=== PATIENT | female | born 1985 | race Caucasian/White ===

== ENCOUNTER 2018-12-11 16:52 | Inpatient (IN) | payer OTHER, SELFPAY ==
[2018-12-11] MEDS ORDERED: Ondansetron PF 4 MG/2 ML Vial IVP PRN (17:23)
[2018-12-11] MEDS ORDERED: Promethazine HCl 25 MG/ML VIAL IM PRN (17:23)
[2018-12-11] MEDS ORDERED: Lactated Ringer's 1,000 ML IV SCH (17:30)
--- NOTE | 2018-12-11 17:32 | PDOC.FPROB ---
FMR OB H&P: Medications - Current Home Medications: Medication Instructions Recorded Confirmed Type Vitamin 1 tab PO DAILY 02/09/17 02/09/17 History Zantac 150 mg PO BID 02/09/17 02/09/17 History valACYclovir [ValTRex] 500 mg PO DAILY 02/09/17 02/09/17 History Ibuprofen [Motrin] 800 mg PO Q8HR #30 tab 02/10/17 Rx Allergies/Adverse Reactions: Allergies Allergy/AdvReac Type Severity Reaction Status Date / Time No Known Allergies Allergy Unverified 02/09/17 06:14 FMR OB H&P: A/P Discussion: Date/Time: 12/11/18 5627 This H&P was discussed with [] and [] who agree with the above documentation and plan.
[2018-12-11 19:15] VITALS: BMI 30.2
--- NOTE | 2018-12-11 19:54 | PDOC.FPROB ---
FMR OB H&P: HPI - History of Present Illness Chief Complaint: cocaine withdrawal Indentification: 33 yo female at 35.3 wks by 35.3 wk sono History of Present Illness: The patient is a 33YO @ an estimated 35.3 weeks gestation by U/S done today who was sent over from clinic to L&D for close monitoring while going through withdrawals from chronic cocaine use. Per the patient she has a h/o chronic cocaine with history of use in her second reports starting in March of last year. Reports her last use was Tuesday (12/09/18). Endorses anxiety and jitteriness but denies any vaginal bleeding, pressure, contractions or discharge. She also denies chest pain, dizziness, SOB, or palpitations. Denies any previous care for this . Did have an ultrasound performed at [facility]. Results/records unavailable. Denies any other ER evaluations or medical care. Primary Care Physician: JOURDAN Thomson FMR OB H&P: Current - Care : 3 Para: 2001 Gestational age: 35.3 wks Due date: 01/09/2019 Dating Criteria: 35.3 wk sono Total weight gain: unknown Course/Complications: No care, chronic cocaine use (nasal use), tobacco use (2 ho/day), hx of HSV, GERD - OB Labs Blood type: AB RH: positive Antibody Screen: negative RPR: negative Pap Smear: NILM 2016 1 hour gtt: not done H&H: 10.8/31.7 Platelets: 290 Additional labs: 12/11/18: Gardnerella positive 12/11/18: GBS, Chlamydia, gonnorrhea pending. 12/11/18: Amni sure negative. - First Trimester Ultrasound First trimester: Not available at present. - Anatomy Survey Anatomy survey: Limited today. Incomplete cardiac and neuro anatomy. Cephalic. Anterior placenta. ALEXANDRA 11.2 cm BPP /8 S/D ratio = 2.44 EFW = 2696 g FMR OB H&P: History - Past Medical History PMH: Substance abuse. Tobacco abuse. Denies all others. - OB History OB History: 01/22/13 38 wks male 7 lbs 11 oz maternal GM has custody 02/09/17 40 wks female 8 lbs 1 oz maternal GM has custody - [employer] History [employer] History: menarche at 16 years old, 28 day interval, LMP March 2018 Hx of Chlamydia and gonorrhea 2007 HSV - denies genital lesions recently. Used ppx with prior pregnancies. NILM 2017 - Surgical History Sx History: Denies - Social History Social History: Tobacco use 2 ho/day Denies alcohol use Cocaine use daily, nasal use Denies hx of travel or abuse - Family History Family History: Mother: HTN Father: DM No congenital abnormalities known to patient. FMR OB H&P: Medications - Current Home Medications: Medication Instructions Recorded Confirmed Type Vitamin 1 tab PO DAILY 02/09/17 02/09/17 History Zantac 150 mg PO BID 02/09/17 02/09/17 History valACYclovir [ValTRex] 500 mg PO DAILY 02/09/17 02/09/17 History Ibuprofen [Motrin] 800 mg PO Q8HR #30 tab 02/10/17 Rx Allergies/Adverse Reactions: Allergies Allergy/AdvReac Type Severity Reaction Status Date / Time No Known Allergies Allergy Verified 12/11/18 19:22 FMR OB H&P: ROS - Review of Systems General: reports: weight/appetite/sleep changes, night sweats, fatigue. denies : fever/chills Eyes: denies: eye pain, vision changes, double vision, scotomas, floaters ENT: denies: nasal congestion, rhinorrhea, sinus pain/pressure, ear pain, toothache, sore throat Cardiovascular: reports: palpitation. denies: chest pain, edema, orthopnea Respiratory: denies: cough, congestion, shortness of breath Gastrointestinal: reports: indigestion. denies: abdominal pain, bloating, cramping, nausea, vomiting, diarrhea, constipation Genitourinary (Female): denies: dysuria, hematuria, vaginal discharge, vaginal pain, vaginal bleeding, vaginal mass/sore, contractions, vaginal pressure Musculoskeletal: denies: pain, stiffness, tenderness, redness Neurologic: denies: numbness, weakness, loss of counsciousness, headache Integumentary: denies: itching, rash, lesions Endocrine: denies: cold intolerance, heat intolerance, polydipsia, polyuria, polyphagia Psychological: reports: anxiety, other (No sucidal ideation). denies: depression, paranoia, hallucinations FMR OB H&P: Vital Signs - Maternal Vital signs: 129/92 83 24 100% on RA - Heart Tones Baseline: 145 Variability: moderate Acceleration: present Deceleration: absent Category: category 1 [place] contractions every: occasional contraction FMR OB H&P: Physical Exam - Physical Exam General: awake, alert and oriented Deviation from normal: Agitated and restless HEENT: normocephalic and atraumatic, PERRLA, EOMI, MMM, conjunctiva clear, grossly normal hearing, normal nasal mucosa Neck: supple, FROM, trachea midline, no LAD Chest: non-tender to palpation, no lesions Heart: RRR, normal S1/S2, no murmurs/rubs/gallops, pulses present, no edema General: no respiratory distress, good air movement, no wheezing, no retractions Abdomen: soft, gravid, fundus(cm) (36 cm), non-tender, bowel sound present, no masses, no hernias Musculoskeletal: normal gait and station, pulses present, FROM in all four extremities Neurological: cranial nerves II through XII intact, sensation to pain,touch and proprioception grossly normal, no focal deficit Skin: no rash, good tugor Lymphatic: no unusual bruising or bleeding Psychiatric: intact recent and remote memory Deviation from normal: restless, agitated, poor judgement - Pelvic Exam Vulva: normal hair distribution, no masses, no lesions Deviation from normal: white, thin discharge. Clear discharge after removal of speculum Cervix: no masses SVE: deferred Membranes: Intact -- Amnisure negative Presentation: Cephalic Estimated Weight: 6 lbs FMR OB H&P: Results - Labs Lab results: Laboratory Tests 12/11/18 12/11/18 12/11/18 19:47 19:47 19:47 WBC 10.7 RBC 3.55 L Hgb 10.8 L Hct 31.7 L MCV 89.3 MCH 30.5 MCHC 34.2 RDW 12.2 Plt Count 290 MPV 6.6 L Sodium 137 Potassium 3.6 Chloride 108 H Carbon Dioxide 23 Anion Gap 10 BUN 6 L Creatinine 0.66 Estimated GFR (MDRD) Greater than 90 Glucose 98 Calcium 8.9 Total Bilirubin 0.2 AST 21 ALT 19 Alkaline Phosphatase 172 H Troponin I B-Natriuretic Peptide Serum Total Protein 6.0 Albumin 3.4 L Globulin 2.6 Albumin/Globulin Ratio 1.3 TSH 3rd Generation Amnio Swab Test Salicylates Less than 8.0 L Acetaminophen Less than 6.0 L Plasma Alcohol Less than 10 Syphilis IgG/IgM Ab Nonreactive 12/11/18 12/11/18 12/11/18 19:47 19:47 19:47 WBC RBC Hgb Hct MCV MCH MCHC RDW Plt Count MPV Sodium Potassium Chloride Carbon Dioxide Anion Gap BUN Creatinine Estimated GFR (MDRD) Glucose Calcium Total Bilirubin AST ALT Alkaline Phosphatase Troponin I Less than 0.010 B-Natriuretic Peptide 28.9 Serum Total Protein Albumin Globulin Albumin/Globulin Ratio TSH 3rd Generation 1.4038 Amnio Swab Test Salicylates Acetaminophen Plasma Alcohol Syphilis IgG/IgM Ab 12/11/18 20:20 WBC RBC Hgb Hct MCV MCH MCHC RDW Plt Count MPV Sodium Potassium Chloride Carbon Dioxide Anion Gap BUN Creatinine Estimated GFR (MDRD) Glucose Calcium Total Bilirubin AST ALT Alkaline Phosphatase Troponin I B-Natriuretic Peptide Serum Total Protein Albumin Globulin Albumin/Globulin Ratio TSH 3rd Generation Amnio Swab Test No Membranes Rupture Salicylates Acetaminophen Plasma Alcohol Syphilis IgG/IgM Ab - Imaging Imaging: See printed reports. FMR OB H&P: A/P - Problem List (1) Current Visit: Yes Status: Acute Qualifiers: Weeks of gestation: 35 weeks Qualified Code(s): Z3A.35 - 35 weeks gestation of (2) Cocaine abuse affecting in third trimester Current Visit: Yes Status: Acute Code(s): O99.323 - DRUG USE COMPLICATING , THIRD TRIMESTER; F14.10 - COCAINE ABUSE, UNCOMPLICATED (3) Tobacco use affecting in third trimester, antepartum Current Visit: Yes Status: Acute Code(s): O99.333 - SMOKING (TOBACCO) COMPLICATING , THIRD TRIMESTER (4) Anemia affecting in third trimester Current Visit: Yes Status: Acute Code(s): O99.013 - ANEMIA COMPLICATING , THIRD TRIMESTER (5) Poor patient attendance of care Current Visit: Yes Status: Acute Code(s): O09.30 - SUPRVSN OF PREG W INSUFFICIENT ANTENAT CARE, UNSP TRIMESTER Disposition: 33 yo female at 35.3 wks by 35.3 wk sono here for substance abuse with cocaine. 1. No care. Labs pending. GBS pending. Limited anatomy performed. NST reactive. BPP 05/10. EFW 2696 g. 2. Substance abuse Patient continues to use cocaine and tobacco. Currently last use 12/09/18. Perfers nasal use. Public health labs pending. On EKG noted to have occasional PACs. Needs cardiac monitoring. Trop I negative. BNP WNL. No evidence of LVH. Will need ECHO to further evaluated due to chronic use and risk for cardiomyopathy. Tele refusing to take patient. Laborist unable to assist in care. [facility] able to accept. Will need psych care once medically cleared. Will continue to trend trop level while here. Needs MFM level II. 3. Tobacco use Discussed risk. Patient admitted to 2 ho/day. Nicotine patch added today due to cravings. Continue to wean due to risk for fetus. 4. hx of HSV Started on acyclovir. Kamran Sanchez PGY1 Addendum - Attending - Attending Attestation Date/Time: 12/11/18 7092 I personally evaluated the patient and discussed the management with Dr. Sanchez I agree with the History, Examination, Assessment and Plan documented above with any addition or exceptions noted below. 33 yo female at 35.3 wks by 35.3 wk sono admitted for cardiac monitoring due to substance abuse toxication/withdrawal Patient without any care. Consider in 1T. Ultrasound performed at that time. Patient unsure of LMP or due date. Chronic nasal cocaine use along with tobacco use. Last use 12/09/18. Currently complaining of agitation, tremors, restlessness, nausea. +FM. Denies LOF, VB, ctx, abdominal pain, discharge. Notes a labial cyst but not seen on exam today. VS reviewed. Labs reviewed. Imaging reviewed. FHT 145/mod/pos acels/no decels Occasional contractions EKG HR 76 with occasional PACs, otherwise NSR. Nonspecific T wave changes and repolarization. Due to cocaine and cocaine metabolites will need acute cardiac monitoring especially since PACs noted. Tele not accepting patient. Laborist unable to assist with care. Will need MFM consult. [facility] accepted to help with management. All labs and swabs performed today. Most still pending. Марина
--- NOTE | 2018-12-11 19:58 | ULT ---
BIOPHYSICAL PROFILE: History: non stress test FINDINGS: biophysical profile score is as follows: tone: 2 breathin movement: 2 Amniotic fluid: 2 IMPRESSION: 1. biophysical profile 8 out of 8. 2. Please refer to the OB ultrasound for additional findings.` POS: [facility]
[2018-12-11 20:24] LABS: Hemoglobin 10.8 g/dL (12.0-16.0); Mean Corpuscular HGB CONC 34.2 g/dL (32.0-36.0); Mean Corpuscular Hemoglobin 30.5 pg (27.0-31.0); Mean Corpuscular Volume 89.3 fL (78.0-98.0); Mean Platelet Volume 6.6 fL (7.4-10.4); Platelet Count 290 thou/uL (130-400); RBC Distribution Width 12.2 % (11.5-14.5); Red Blood Cell (RBC) Count 3.55 mill/uL (4.20-5.40); White Blood Cell (WBC) Count 10.7 thou/uL (4.8-10.8)
[2018-12-11 20:45] LABS: Amnisure Test No Membranes Rupture (No Rupture)
[2018-12-11 20:46] LABS: Amnisure Internal Control QC ACCEPTABLE (ACCEPTABLE)
[2018-12-11 20:48] LABS: ALT (SGPT) 19 U/L (8-55); AST (SGOT) 21 U/L (5-34); Acetaminophen Less than 6.0 mcg/mL (10.0-30.0); Albumin 3.4 g/dL (3.5-5.0); Alcohol Less than 10 mg/dL (Less than 10); Alkaline Phosphatase 172 U/L (40-150); Anion Gap 10 mmol/L (10-20); BUN (Urea Nitrogen) 6 mg/dL (7.0-18.7); Bilirubin, Total 0.2 mg/dL (0.2-1.2); Calc. Creatinine Clearance 145 mL/min (70-130); Calcium 8.9 mg/dL (7.8-10.44); Carbon Dioxide 23 mmol/L (22-29); Chloride 108 mmol/L (98-107); Estimated GFR-MDRD Greater than 90; Globulin 2.6 g/dL (2.4-3.5); Glucose 98 mg/dL (70-105); Potassium 3.6 mmol/L (3.5-5.1); Salicylate Less than 8.0 mg/dL (15.0-30.0); Sodium 137 mmol/L (136-145)
[2018-12-11 20:51] LABS: Troponin I Less than 0.010 ng/mL (< 0.028)
[2018-12-11] MEDS ORDERED: Acyclovir 400 mg Tablet PO SCH (21:00)
--- NOTE | 2018-12-11 21:02 | ULT ---
OB ULTRASOUND: History: Evaluation of anatomy and evaluation for dates. FINDINGS: Real-time imaging of the abdomen was performed and shows a single viable intrauterine which is a vertex presentation. The placenta is anterior in location without evidence of previa. The amnio tic fluid index is 11.2, visually the fluid appears borderline low. measurements: BPD 8.8 cm 35 weeks 5 days HC 32.2 cm 36 weeks 3 days AC 32.5 cm 36 weeks 3 days FL 6.4 cm 33 weeks 1 day anatomy assessment is somewhat limited due to size. head appears normal. Position of head made it difficult to evaluate cerebellum and even the cerebral hemispheres. Four chamber heart was i dentified. Stomach, kidneys, bladder and spine appear unremarkable. Cord insertion was not definitely seen. Three vessel cord was identified. IMPRESSION: 1. Single viable intrauterine in cephalic presentation. Overall measurements correspond to a gestational age of 35 weeks 3 days with estimated date of delivery of 01-12-19. 2. Placenta which is anterior in location without evidence of previa. 3. Estimated weight 2700 +/- 400 grams. POS: [facility]
[2018-12-11 21:06] LABS: Syphilis Antibody Nonreactive (Nonreactive); Syphilis Antibody Index 0.15 S/CO (<1.00 Non-Reactive)
[2018-12-11] MEDS ORDERED: hydrOXYzine 25 MG TAB PO PRN (21:16)
[2018-12-11] MEDS ORDERED: Zolpidem Tartrate 5 MG TAB PO PRN (21:18)
[2018-12-11] MEDS ORDERED: Nicotine 21 MG PATCH TD SCH (22:00)
[2018-12-11 22:37] LABS: Hemoglobin A1c 4.3 % (4.0-6.0)
[2018-12-11 22:41] LABS: Bilirubin Negative (Negative); Blood, Urine Negative (Negative); Clarity CLOUDY (Clear); Glucose, Urine (Dipstick) Negative (Negative); Leukocyte Small (Negative); Nitrite Negative (Negative); Protein, Urine (Dipstick) Negative (Neg-Trace); Specific Gravity, Urine 1.013 (1.002-1.036); pH, Urine 7.5 (5.0-9.0)
[2018-12-11 22:50] LABS: Amphetamine Not Detected (NotDetected); Bacteria/HPF None Seen HPF (None Seen); Barbiturates Screen Not Detected (NotDetected); Benzodiazepine Screen Not Detected (NotDetected); Cocaine Metabolite Screen Detected (NotDetected); Hyaline Casts/LPF 0-3 HYALINE CAST LPF (0-3 Hyaline); Medtox Control Line Valid? VALID (VALID); Medtox Reader # READER 1; Methadone Not Detected (NotDetected); Methamphetamine Not Detected (NotDetected); Opiate Screen Not Detected (NotDetected); Oxycodone Screen Not Detected (NotDetected); Pathc Cast-AUWi Flag 0.13 (0-2.49); Phencyclidine (PCP) Not Detected (NotDetected); RBC/HPF 0-3 HPF (0-3); Squamous Epithelial 0-3 HPF (0-3); THC/Cannabinoid Screen Not Detected (NotDetected); Tricyclic Screen Not Detected (NotDetected); WBC/HPF 0-3 HPF (0-3)
--- NOTE | 2018-12-11 22:55 | ULT ---
SONOGRAPHIC EVALUATION OF THE UMBILICAL CORD WITH UMBILICAL DOPPLER EVALUATION INCLUDING SPECTRAL DAVID LYSIS AND COLOR FLOW EVALUATION: Date: 12-11-18 FINDINGS: There is a single intrauterine gestation in cephalic presentation. Umbilical artery at the level of the placenta: Peak systolic velocity 83.8 cm/sec. End diastolic velocity 38.4 cm/sec.. Pulsatility index 0.8. Resistive index 0.54. Systolic/diastolic ratio 2.18. Mid umbilical artery: Peak systolic velocity 65 cm/sec. End diastolic velocity 26.6 cm/sec. Pulsatility index: 1.01 Resistive index: 0.59 Systolic to diastolic ratio: 2.44 Umbilical artery insertion: Peak systolic velocity 83.8 cm/sec. End diastolic velocity 32.1 cm/sec. Pulsatility index: 1.06 Resistive index: 0.62 Systolic to diastolic ratio 2.61 IMPRESSION: 1. Umbilical artery dopplers as described above. POS: [facility]
[2018-12-11 23:38] LABS: Hep C IgG Ab Non-Reactive (NonReactive); Hep C Index 0.06 S/CO (0-0.79)
[2018-12-11 23:39] LABS: HIV (1/2) Antibody/Antigen Non-Reactive (NonReactive); Hep B Surf Ag Non-Reactive S/CO (NonReactive)
[2018-12-11 23:43] LABS: Troponin I Less than 0.010 ng/mL (< 0.028)
[2018-12-12] MEDS ORDERED: Prenatal Vitamin 1 TAB PO SCH (09:00)
[2018-12-12] MEDS ORDERED: Nicotine 21 MG PATCH TD SCH (09:00)
[2018-12-12 23:41] LABS: Chlamydia by PCR DETECTED (NotDetected); GC by PCR Not Detected (NotDetected)
== END 2018-12-12 00:36 | disposition short-term general hospital (02) | DRG 833 ==
LOC: L&D 16:52
PROVIDERS: ADMIT Family Medicine; ATTEND Family Medicine
DX: O99.323 Drug use complicating pregnancy, third trimester (principal); F14.10 Cocaine abuse, uncomplicated; O99.333 Smoking (tobacco) complicating pregnancy, third trimester; O99.013 Anemia complicating pregnancy, third trimester; D64.9 Anemia, unspecified; O09.33 Supervision of pregnancy with insufficient antenatal care, third trimester; F17.210 Nicotine dependence, cigarettes, uncomplicated; Z3A.35 35 weeks gestation of pregnancy
CPT/HCPCS: 36415; 76805; 76815; 76819; 80053; 80306; 80307; 81001; 83036; 83880; 84112; 84443; 84484; 85027; 86480; 86762; 86780; 86803; 86850; 86900; 86901; 87081; 87086; 87340; 87389; 87480; 87491; 87510; 87591; 87660; 93005; 93010; 99285

== ENCOUNTER 2019-01-02 05:08 | Inpatient (IN) | payer MEDICAID, OTHER ==
[2019-01-02] MEDS ORDERED: Acetaminophen 500 MG TAB PO PRN (05:28)
[2019-01-02] MEDS ORDERED: Docusate 100 MG CAP PO PRN (05:28)
[2019-01-02] MEDS ORDERED: Promethazine HCl 25 MG/ML VIAL IM PRN ×2 (05:28→09:00)
[2019-01-02] MEDS ORDERED: Ondansetron PF 4 MG/2 ML Vial IVP PRN ×3 (05:28→17:55)
[2019-01-02] MEDS ORDERED: Lidocaine 1% (PF) 30 ML VIAL SC PRN (05:28)
[2019-01-02 06:03] VITALS: BMI 32.1
[2019-01-02 06:33] LABS: Hemoglobin 11.8 g/dL (12.0-16.0); Mean Corpuscular HGB CONC 34.6 g/dL (32.0-36.0); Mean Corpuscular Hemoglobin 30.4 pg (27.0-31.0); Mean Corpuscular Volume 87.9 fL (78.0-98.0); Mean Platelet Volume 6.8 fL (7.4-10.4); Platelet Count 297 thou/uL (130-400); RBC Distribution Width 12.1 % (11.5-14.5); Red Blood Cell (RBC) Count 3.88 mill/uL (4.20-5.40)
--- NOTE | 2019-01-02 06:36 | PDOC.FPROB ---
FMR OB H&P: HPI - History of Present Illness Chief Complaint: induction of labor Indentification: History of Present Illness: 33yo at 40.1w EGA by LMP and 9.3w US with PMH of cocaine tobacco and etoh use during presents for induction of labor. Pt has no complaints or concerns at this time. She denies vaginal bleeding/LOF. Reports mild infrequent contractions. Of note pt has had HSV infection though she has been asymptomatic and on suppressive therapy. Primary Care Physician: Dr. Thomson FMR OB H&P: Current - Care : 3 Para: 2001 Gestational age: 40.1 Dating Criteria: LMP and 9.3w US - OB Labs Blood type: AB RH: positive HIV: negative RPR: negative HepBsAg: negative Rubella: immune Urine drug screen: positive (cocaine, no positives since 37w) Gonorrhea: negative Chlamydia: positive (s/p treatment) GBS: negative FMR OB H&P: History - Past Medical History PMH: Anxiety - Surgical History Sx History: none - Social History Social History: cocaine use, active smoker 1-2 packs per day, Denies etoh - Family History Family History: DM FMR OB H&P: Medications - Current Home Medications: Medication Instructions Recorded Confirmed Type Zantac 150 mg PO BID 02/09/17 01/02/19 History valACYclovir [ValTRex] 500 mg PO DAILY 02/09/17 01/02/19 History hydrOXYzine HCl [Hydroxyzine HCl] 1 tablet PO PRN PRN 01/02/19 01/02/19 History Allergies/Adverse Reactions: Allergies Allergy/AdvReac Type Severity Reaction Status Date / Time No Known Allergies Allergy Verified 12/11/18 19:22 FMR OB H&P: ROS - Review of Systems General: denies: fever/chills, fatigue Eyes: denies: eye pain, vision changes ENT: denies: nasal congestion, rhinorrhea Cardiovascular: denies: chest pain, palpitation Respiratory: denies: cough, congestion Gastrointestinal: denies: abdominal pain, indigestion Genitourinary (Female): denies: incontinence, dysuria Musculoskeletal: denies: stiffness, tenderness Neurologic: denies: syncope, seizures Integumentary: denies: rash, lesions Endocrine: denies: cold intolerance, heat intolerance Hematologic/Lymphatic: denies: prolonged or excessive bleeding Psychological: reports: anxiety. denies: depression FMR OB H&P: Vital Signs - Maternal Vital signs: Vital Signs - First Documented Temp Pulse Resp BP Pulse Ox 98.0 F 100 16 127/92 H 97 01/02/19 05:21 01/02/19 05:21 01/02/19 05:21 01/02/19 05:21 01/02/19 05:21 FMR OB H&P: Physical Exam - Physical Exam General: NAD, awake, alert and oriented HEENT: normocephalic and atraumatic, EOMI, grossly normal vision, grossly normal hearing Neck: supple, trachea midline Chest: non-tender to palpation Breast: symmetric Heart: RRR, normal S1/S2 General: CTAB, no respiratory distress Abdomen: soft, gravid Musculoskeletal: normal gait and station, pulses present Neurological: no tremor, no focal deficit Skin: no rash, capillary refill <2 seconds Lymphatic: no unusual bruising or bleeding, no purpura Psychiatric: intact recent and remote memory, good judgement and insight - Pelvic Exam SVE: 350/-2 FMR OB H&P: Results - Labs Lab results: Laboratory Results - last 24 hr 01/02/19 06:24 WBC 17.0 H RBC 3.88 L Hgb 11.8 L Hct 34.1 L MCV 87.9 MCH 30.4 MCHC 34.6 RDW 12.1 Plt Count 297 MPV 6.8 L FMR OB H&P: A/P - Problem List (1) Vaginal delivery Current Visit: No Status: Acute Code(s): O80 - ENCOUNTER FOR FULL-TERM UNCOMPLICATED DELIVERY (2) Cocaine abuse affecting in third trimester Current Visit: No Status: Acute Code(s): O99.323 - DRUG USE COMPLICATING , THIRD TRIMESTER; F14.10 - COCAINE ABUSE, UNCOMPLICATED (3) Poor patient attendance of care Current Visit: No Status: Acute Code(s): O09.30 - SUPRVSN OF PREG W INSUFFICIENT ANTENAT CARE, UNSP TRIMESTER (4) Current Visit: No Status: Acute Qualifiers: Weeks of gestation: 35 weeks Qualified Code(s): Z3A.35 - 35 weeks gestation of (5) Tobacco use affecting in third trimester, antepartum Current Visit: No Status: Acute Code(s): O99.333 - SMOKING (TOBACCO) COMPLICATING , THIRD TRIMESTER Discussion: induction of tIUP A- Pt shows reassuring FHT with favorable cervix P- Will start pitocin -monitor FHT -recheck in 4 hrs -US to check position -standard antepartum care Cocaine use during third trimester A- Pt advised to quit. Last use reportedly at 37w EGA P- repeat UDS Tobacco use during - Advised to quit HSV A- no active lesions from chart review, pt on acyclovir P- will do spec exam to evaluate for lesions Hx of Chlamydia infection - pt is s/p treatment Addendum - Attending - Attending Attestation Date/Time: 01/02/19 0900 I personally evaluated the patient and discussed the management with Dr. Fernandez and Dr. Mcgee I agree with the History, Examination, Assessment and Plan documented above with any addition or exceptions noted below. 33 yo female at 40.1 wks by LMP/9.3 wk sono admitted for IOL Patient doing well. Denies contractions, VB, LOF, discharge. +FM. VS reviewed. Labs reviewed. NAD. RRR. No murmurs. Gravid. Nontender fundus. Vertex by bedside sono. EFW 8lbs SVE, no lesions FHT cat1 1. sIUP: IOB labs reviewed along with OB record. Will continue with elective IOL. PCP notified. 2. hx of HSV: No active lesions. No prodrome. Has been on ppx. Will continue until delivery. 3. Substance abuse history: UDS negative. Will collect on . Consult CM. 4. Tobacco use 5. Anxiety 6. Chlamydia positive: Treated. MICHELLE negative. 7. Incomplete PNC. Continue to monitor. Pitocin for induction. Patient with favorable cervix. Марина
[2019-01-02] MEDS ORDERED: hydrOXYzine 25 MG TAB PO PRN (06:48)
[2019-01-02] MEDS ORDERED: NS w/ Oxytocin 10 units 500 ML IV SCH (07:00)
[2019-01-02 07:12] LABS: HBSAg Index 0.32 S/CO (0-0.99); Hep B Surf Ag Non-Reactive S/CO (NonReactive); Syphilis Antibody Nonreactive (Nonreactive); Syphilis Antibody Index 0.11 S/CO (<1.00 Non-Reactive)
[2019-01-02] MEDS ORDERED: Fentanyl 4 mcg/Bup 0.1% Cadd 100 ML ONE ×2 (07:24→15:08)
[2019-01-02 07:41] LABS: Amphetamine Not Detected (NotDetected); Barbiturates Screen Not Detected (NotDetected); Benzodiazepine Screen Not Detected (NotDetected); Cocaine Metabolite Screen Not Detected (NotDetected); Medtox Control Line Valid? VALID (VALID); Medtox Reader # READER 1; Methadone Not Detected (NotDetected); Methamphetamine Not Detected (NotDetected); Opiate Screen Not Detected (NotDetected); Oxycodone Screen Not Detected (NotDetected); Phencyclidine (PCP) Not Detected (NotDetected); THC/Cannabinoid Screen Not Detected (NotDetected); Tricyclic Screen Not Detected (NotDetected)
[2019-01-02] MEDS ORDERED: Naloxone HCl 0.4 mg/ml Vial IVP PRN ×2 (09:00)
[2019-01-02] MEDS ORDERED: Fentanyl 4 mcg/Bupivacaine 0.1% Cassette 100 ML EPIDURAL SCH (09:00)
[2019-01-02] MEDS ORDERED: Eucerin (Mineral Oil/Petrolatum,White) 30 gm Jar TOP PRN (09:00)
[2019-01-02] MEDS ORDERED: Acetaminophen 325 MG TAB PO PRN (09:00)
[2019-01-02] MEDS ORDERED: ePHEDrine/0.9% NaCl/PF SYRINGE 50 mg/10 ml SLOW IVP PRN (09:00)
[2019-01-02] MEDS ORDERED: Misoprostol 100 MCG TAB VAG SCH (09:00)
[2019-01-02] MEDS ORDERED: diphenhydrAMINE 50 MG/ML VIAL IVP PRN (09:00)
[2019-01-02] MEDS ORDERED: Communication Order-Pharmacy FS SCH (09:00)
[2019-01-02] MEDS ORDERED: Lactated Ringer's 500 ML IV PRN (09:00)
[2019-01-02] MEDS ORDERED: Lactated Ringer's 1,000 ML IV SCH (09:15)
[2019-01-02] MEDS: Famotidine 20 MG TAB PO SCH ×2 (09:20→20:43)
[2019-01-02] MEDS: valACYclovir 500 MG TAB PO SCH (09:20)
--- NOTE | 2019-01-02 13:03 | PDOC.LDPN ---
Labor & Delivery Progress Note - Subjective Subjective: comfortable, no concerns - Objective Vital signs reviewed and normal: yes General: NAD, resting, breathing through contractions, other (restless on bed, moving around frequently) Uterine fundus: non tender Dilation: 4.5 Effacement: 75% Station: -1 FHT: category 1, variability present [place] contractions every: every 2-4 min Resuscitative measures: maternal IV fluids Plan: continue plan of care, pitocin for augmentation -: Induction of tIUP - Continue standard antepartum care - patient on 14 of pitocin - FHR: 130s, mod variability, no decels, accels present; will continue to monitor - CTX: every 2-4 min - Will continue care, recheck around 1600 and likely rupture membranes at that time Cocaine use during third trimester - Pt advised to quit. Last use reportedly at 37w EGA - UDS neg Tobacco use during - Advised to quit - Will give nicotine patch HSV - no active lesions from chart review, pt on acyclovir - will do spec exam to evaluate for lesions Hx of Chlamydia infection - pt is s/p treatment Case discussed with Dr. Thomson
--- NOTE | 2019-01-02 13:26 | PDOC.EVN ---
Event Note - Event Note Event Note: SSE and US: performed at 0800 on 01/02/19 SSE: No HSV lesions noted externally, on the vaginal side wall, or on/around the cervix. Patient tolerated the procedure well. US: cephalic positioning of fetus Will continue to give patient her daily dose of valtrex. No active lesions - safe for vaginal delivery.
[2019-01-02] MEDS: NS / Oxytocin 40 units/1000ml 1,000 ML IV PRN ×2 (16:55→17:52)
--- NOTE | 2019-01-02 17:19 | PDOC.OPDEL ---
OB Operative/Delivery Note Delivery Dr/Surgeon: Alix Lozada Pre-Delivery Diagnosis: medically indicated induction (post dates IOL) Procedure/Post Delivery Dx: spontaneous vaginal delivery Weeks gestation: 40 (40.1) Anesthesia: epidural - Findings A Sex: female - 1 min: 8 - 5 min: 9 - Additional Findings/Plan Placenta delivered: spontaneous Repaired Obstetrical Laceration: none Compilations/Other Findings: This is 33yo F [id number] @ 40.1wks who delivered a viable F at 1650 on . APGARS 8,9. QBL 320ml. Following an antepartum course complicated by poor care, cocaine use during , tobacco use during , HSV positive on acyclovir, Chlamydia s/p treatment , a vigorous F was delivered over an intact perineum in the occipitoanterior position. Anterior Shoulder and then remainder of the body delivered. Nuchal cord x 1, easily reduced. The head was held down and mouth and nares were bulb suctioned. Cord clamped after delayed cord clamping and cut and cord blood collected. Placenta delivered intact with a 3 vessel cord noted. Fundal massage was performed and the fundus was firm. The cervix and vagina were inspected and found to have perineal abrasion that was hemostatic and did not require repair. went to nursery in good condition for routine care. Apgars were 8/9 at 1 & 5 minutes, respectively. Patient tolerated delivery well and went to after routine recovery/care. Post delivery plan: routine recovery Addendum - Attending - Attending Attestation Date/Time: 01/03/19 1305 I was present for and assisted in the uncomplicated performed by Dr. Lozada. I agree with the documented findings above.
[2019-01-02] MEDS ORDERED: Bisacodyl 10 MG SUPP PR PRN (17:55)
[2019-01-02] MEDS ORDERED: diphenhydrAMINE 25 MG CAP PO PRN (17:55)
[2019-01-02] MEDS ORDERED: NS / Oxytocin 40 units/1000ml 1,000 ML IV SCH (17:55)
[2019-01-02] MEDS ORDERED: Preparation H Ointment 28 GM TUBE PR PRN (17:55)
[2019-01-02] MEDS ORDERED: Milk Of Magnesia 30 ML UDCUP PO PRN (17:55)
[2019-01-02] MEDS ORDERED: Lanolin Ointment 7 GM TUBE TOP PRN (17:55)
[2019-01-02] MEDS: Docusate Calcium (SURFAK) 240 MG CAP PO SCH (20:42)
[2019-01-02] MEDS: Ibuprofen 800 MG TAB PO SCH (20:42)
[2019-01-02] MEDS ORDERED: hydrOXYzine 10 MG TAB PO SCH ×2 (23:00→23:59)
[2019-01-02] MEDS: hydrOXYzine 25 MG TAB PO SCH (23:07)
[2019-01-03] MEDS: Nicotine 14 MG PATCH TD SCH ×2 (03:59→13:59)
[2019-01-03] MEDS: Ibuprofen 800 MG TAB PO SCH ×3 (05:11→21:33)
[2019-01-03] MEDS: hydrOXYzine 25 MG TAB PO SCH ×4 (05:11→22:30)
--- NOTE | 2019-01-03 06:57 | PDOC.PP ---
Addendum entered and electronically signed by Devorah Lozada MD 01/03/19 09:23 : Please edit in Plan * Will discontinue daily valtrex for hx of hsv Original Note: Post Progress Note Post Day #: 1 Subjective: Patient resting comfortably in bed. Ambulating, passing flatus and tolerating PO. Patient reports feeling very anxious. States she was unable to sleep until 2am last night due to anxiety. Patient denies drug abuse, states she is going to rehab after discharge. PO intake tolerated: yes Flatus: yes Ambulation: yes Vital Signs (12 hours) Temp Pulse Resp BP Pulse Ox 01/03/19 05:05 97.8 F 75 18 115/74 100 01/02/19 21:30 98.0 F 75 20 89/52 L 97 01/02/19 20:30 97.9 F 68 20 125/79 01/02/19 19:30 98.1 F 86 20 118/58 L 97 Weight Weight 79.832 kg - Physical Examination General: NAD Cardiovascular: no m/r/g, RRR Respiratory: clear to auscultation bilaterally, non-labored breathing Abdominal: + bowel sounds, lochia (less than a period), no distention Fundus firm & at: umbilicus Neurological: no gross focal deficits Psychiatric: A&Ox3, normal affect Result Diagrams: 01/02/19 06:24 Additional Labs: Post Labs Blood Type AB POSITIVE 01/02/19 06:24 Hep Bs Antigen Non-Reactive S/CO (NonReactive) 01/02/19 06:24 (1) Tobacco use Code(s): Z72.0 - TOBACCO USE Status: Acute (2) Cocaine abuse Code(s): F14.10 - COCAINE ABUSE, UNCOMPLICATED Status: Acute (3) Vaginal delivery Code(s): O80 - ENCOUNTER FOR FULL-TERM UNCOMPLICATED DELIVERY Status: Acute (4) HSV (herpes simplex virus) infection Code(s): B00.9 - HERPESVIRAL INFECTION, UNSPECIFIED Status: Acute - Assessment/Plan This is a 33 yo F [id number] who delivered a viable F via on 01/02 at 1650, no lacs. Term - Routine PP care - VSS - H/H stable prior to delivery and QBL low. Patient feeling well. - Pain well controlled with motrin/tylenol - Encourage frequent ambulation - Patient tolerating PO and passing flatus Anxiety - Will start buspar and abilify - Will monitor closely Tobacco use - Encourage cessation - Nicotine patch placed Cocaine use - Encourage cessation - CM consulted Hx of HSV - Continue daily dose of acyclovir Dispo: likely dc tomorrow Case discussed with Dr. Zee Addendum - Attending - Attending Attestation Date/Time: 01/03/19 2557 I personally evaluated the patient and discussed the management with Dr. Lozada. I agree with the History, Examination, Assessment and Plan documented above with any addition or exceptions noted below. 33 yo [id number] PPD#1 s/p uncomplicated . Pt reports being very anxious and restless due to not being able to smoke and all the things going on socially. Will start buspar and abilify to help with anxiety and mood stabilization. Otherwise meeting appropriate milestones. Plan for d/c to rehab tomorrow.
[2019-01-03] MEDS ORDERED: Adacel (T-DAP) 0.5 ML SYRINGE IM ONE (09:00)
[2019-01-03] MEDS: valACYclovir 500 MG TAB PO SCH (09:29)
[2019-01-03] MEDS ORDERED: Bupivacaine/Epinephrine 0.25% 30 ML VIAL ONE (10:03)
[2019-01-03] MEDS: Famotidine 20 MG TAB PO SCH ×2 (10:09→21:33)
[2019-01-03] MEDS: Prenatal Vitamin 1 TAB PO SCH (10:09)
[2019-01-03] MEDS: Docusate Calcium (SURFAK) 240 MG CAP PO SCH ×2 (10:09→21:32)
[2019-01-03] MEDS: busPIRone HCl 10 MG TAB PO SCH (21:32)
[2019-01-04] MEDS: Ibuprofen 800 MG TAB PO SCH (06:25)
[2019-01-04] MEDS: hydrOXYzine 25 MG TAB PO SCH ×2 (06:25→12:49)
--- NOTE | 2019-01-04 07:02 | PDOC.PP ---
Post Progress Note Post Day #: 2 Subjective: Patient resting comfortably in bed. No issues overnight. Patient reports feeling less anxious today. Patient has a positive outlook about going to rehab. PO intake tolerated: yes Flatus: yes Ambulation: yes Vital Signs (12 hours) Temp Pulse Resp BP BP Pulse Ox 01/04/19 00:00 97.6 F 72 20 128/84 01/03/19 19:35 97.9 F 74 18 126/62 97 Weight Weight 79.832 kg - Physical Examination General: NAD Cardiovascular: no m/r/g, RRR Respiratory: clear to auscultation bilaterally, non-labored breathing Abdominal: + bowel sounds, lochia (like a period), no distention Neurological: no gross focal deficits Psychiatric: A&Ox3, normal affect Result Diagrams: 01/02/19 06:24 Additional Labs: Post Labs Blood Type AB POSITIVE 01/02/19 06:24 Hep Bs Antigen Non-Reactive S/CO (NonReactive) 01/02/19 06:24 (1) Tobacco use Code(s): Z72.0 - TOBACCO USE Status: Acute (2) Cocaine abuse Code(s): F14.10 - COCAINE ABUSE, UNCOMPLICATED Status: Acute (3) Vaginal delivery Code(s): O80 - ENCOUNTER FOR FULL-TERM UNCOMPLICATED DELIVERY Status: Acute (4) HSV (herpes simplex virus) infection Code(s): B00.9 - HERPESVIRAL INFECTION, UNSPECIFIED Status: Acute - Assessment/Plan This is a 33 yo F [id number] who delivered a viable F via on 01/02 at 1650, no lacs. PPD #2. Term - Routine PP care - VSS - H/H stable prior to delivery and QBL low. Patient feeling well. - Pain well controlled with motrin/tylenol - Encourage frequent ambulation - Patient tolerating PO and passing flatus Anxiety - Will start buspar and abilify - Will monitor closely - Pt going to rehab post discharge Tobacco use - Encourage cessation - Nicotine patch placed Cocaine use - Encourage cessation - CM consulted - CPS will speak w/ family today Hx of HSV - disontinue daily dose of acyclovir Dispo: dc today to rehab Case discussed with Dr. Thomson Addendum - Attending - Attending Attestation Date/Time: 01/04/19 1767 I personally evaluated the patient and discussed the management with Dr. Lozada. I agree with the History, Examination, Assessment and Plan documented above with any addition or exceptions noted below. Pt reports feeling less anxious today. Ready to go to rehab today. Meeting appropriate milestones and stable for d/c to rehab today. Will send with rx for abilify, buspar and ibuprofen. Routine PP counseling completed.
[2019-01-04 08:09] VITALS: BP 124/63; TEMP 98
[2019-01-04] MEDS: Docusate Calcium (SURFAK) 240 MG CAP PO SCH (08:18)
[2019-01-04] MEDS: Famotidine 20 MG TAB PO SCH (08:18)
[2019-01-04] MEDS: busPIRone HCl 10 MG TAB PO SCH (08:18)
[2019-01-04] MEDS: Prenatal Vitamin 1 TAB PO SCH (08:19)
[2019-01-04] MEDS ORDERED: Aripiprazole 15 MG TAB PO SCH (09:00)
[2019-01-04] MEDS: Nicotine 14 MG PATCH TD SCH (12:50)
== END 2019-01-04 13:10 | disposition home or self-care (01) | DRG 806 ==
LOC: L&D 05:08 → 3SW 21:31
PROVIDERS: ADMIT Family Medicine; ATTEND Family Medicine
PROC: 10E0XZZ Delivery of Products of Conception, External Approach (ICD-10-PCS; principal; 2019-01-02)
DX: O99.324 Drug use complicating childbirth (principal); O98.52 Other viral diseases complicating childbirth; Z37.0 Single live birth; O48.0 Post-term pregnancy; F14.10 Cocaine abuse, uncomplicated; O99.334 Smoking (tobacco) complicating childbirth; O69.81X0 Labor and delivery complicated by cord around neck, without compression, not applicable or unspecified; B00.9 Herpesviral infection, unspecified; O99.344 Other mental disorders complicating childbirth; F41.9 Anxiety disorder, unspecified; F17.210 Nicotine dependence, cigarettes, uncomplicated; Z86.19 Personal history of other infectious and parasitic diseases; Z3A.40 40 weeks gestation of pregnancy
CPT/HCPCS: 36415; 51702; 80306; 85027; 86780; 86850; 86900; 86901; 87340